=== PATIENT | female | born 1960 | race Caucasian/White ===

== ENCOUNTER 2019-03-12 16:58 | Emergency (ER) | payer SELFPAY ==
[~2019-03-12] VITALS: Ht 152.4 cm; Wt 83.5 kg
[2019-03-12 17:00] VITALS: Ht 152.4 cm; Wt 83.5 kg
[2019-03-12 18:05] VITALS: BP 145/83
== END 2019-03-12 18:05 | disposition home or self-care (01) ==
LOC: ED 16:58
DX: M54.5 Low back pain (principal); R11.2 Nausea with vomiting, unspecified; I10 Essential (primary) hypertension; Z90.49 Acquired absence of other specified parts of digestive tract; Z90.710 Acquired absence of both cervix and uterus; Z88.6 Allergy status to analgesic agent
CPT/HCPCS: J2270

== ENCOUNTER 2020-06-04 11:21 | Emergency (ER) | payer MEDICAID ==
[~2020-06-04] VITALS: Ht 154.9 cm; Wt 79.8 kg
[2020-06-04 12:00] VITALS: Ht 154.9 cm; Wt 79.8 kg
[2020-06-04 13:33] LABS: BASOPHIL % 0.8 % (0.2-1.3); PLATELET COUNT 216 x10^3mcL (179-408)
[2020-06-04 13:54] LABS: CALCIUM 8.6 mg/dL (8.5-10.1); CARBON DIOXIDE 27.2 mmol/L (21-32); CHLORIDE SERUM 98 mmol/L (98-107); CREATININE SERUM 0.7 mg/dL (0.6-1.0); GFR1 > 60 mL/min; GLUCOSE SERUM 381 mg/dL (74-106); POTASSIUM SERUM 4.3 mmol/L (3.5-5.1); SODIUM SERUM 135 mmol/L (136-145)
[2020-06-04 13:58] LABS: ALKALINE PHOSPHATASE 160 U/L (46-116); ALT/SGPT 48 U/L (14-59); AST/SGOT 32 U/L (15-37); BILIRUBIN TOTAL 0.3 mg/dL (0.20-1.00); TOTAL PROTEIN, SERUM 6.7 g/dL (6.4-8.2)
[2020-06-04 13:59] LABS: ALBUMIN 3.2 g/dL (3.4-5.0)
[2020-06-04 15:04] LABS: microscopic required? YES; urine erythrocyte TRACE (NEGATIVE)
[2020-06-04 16:50] VITALS: BP 131/60
== END 2020-06-04 16:50 | disposition home or self-care (01) ==
LOC: ED 11:21
PROVIDERS: Emergency Medicine
DX: E11.9 Type 2 diabetes mellitus without complications (principal); N76.0 Acute vaginitis; N64.4 Mastodynia; I10 Essential (primary) hypertension; F17.210 Nicotine dependence, cigarettes, uncomplicated; Z88.6 Allergy status to analgesic agent
CPT/HCPCS: 76641; 87491; 87591; 99406